=== PATIENT | male | born 2000 | race Caucasian/White ===

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

== ENCOUNTER 2019-08-28 10:13 | Emergency (ER) | payer BC ==
--- NOTE | 2019-08-28 11:24 | ED ---
Lower Extremity - HPI Summary HPI Summary: Patient is a 18-year-old male who presents emergency department for ankle injury that occurred yesterday while running. Symptoms are mild in severity. Pain is exacerbated by walking. Denies numbness, tingling or weakness. - History of Current Complaint Chief Complaint: EDExtremityLower Stated Complaint: POSS BROKEN LEFT ANKLE PER PT Time Seen by Provider: 08/28/19 11:12 Hx Obtained From: Patient Pain Intensity: 7 - Allergies/Home Medications Allergies/Adverse Reactions: Allergies Allergy/AdvReac Type Severity Reaction Status Date / Time No Known Allergies Allergy Verified 08/28/19 10:24 Home Medications: Home Medications Fluticasone NASAL SPRAY 50MCG* [Flonase NASAL SPRAY 50MCG*] 2 spray BOTH NARES DAILY PRN 08/28/19 [History Confirmed 08/28/19] PMH/Surg Hx/FS Hx/Imm Hx Previously Healthy: Yes Endocrine/Hematology History: Denies: Hx Anticoagulant Therapy Respiratory History: Denies: Hx Asthma Infectious Disease History: No Infectious Disease History: Denies: Traveled Outside the [place] in Last 30 Days - Family History Known Family History: Positive: Non-Contributory Negative: Diabetes - Social History Occupation: Student Lives: [facility] [employer] Alcohol Use: Occasionally Substance Use Type: Reports: None Smoking Status (MU): Never Smoked Tobacco Review of Systems Constitutional: Negative Positive: Other - left ankle injury Skin: Negative Neurological: Negative Negative: Weakness, Paresthesia, Numbness All Other Systems Reviewed And Are Negative: Yes Physical Exam Triage Information Reviewed: Yes Vital Signs On Initial Exam: Initial Vitals Temp Pulse Resp BP Pulse Ox 98.3 F 67 16 129/71 99 08/28/19 10:22 08/28/19 10:22 08/28/19 10:22 08/28/19 10:22 08/28/19 10:22 Vital Signs Reviewed: Yes Appearance: Positive: Well-Appearing - Pt. sitting on bed in NAD. Friend present. Skin: Positive: Warm, Dry Head/Face: Positive: Normal Head/Face Inspection Eyes: Positive: Normal, EOMI Neck: Positive: Supple Musculoskeletal: Positive: Other - Pain and mild edema over left lateral malleolus. No breaks in the skin. Pedal pulse and intact. No foot pain on palpation and no pain over the base of the fifth metatarsal. Achilles tendon intact. No proximal tib-fib or knee pain. Neurological: Positive: Normal, CN Intact II-III Psychiatric: Positive: Affect/Mood Appropriate Diagnostics - Vital Signs Vital Signs Temp Pulse Resp BP Pulse Ox 08/28/19 10:22 98.3 F 67 16 129/71 99 - Laboratory Lab Statement: Any lab studies that have been ordered have been reviewed, and results considered in the medical decision making process. Lower Extremity Course/Dx - Course Course Of Treatment: Patient with isolated ankle injury. X-ray shows soft tissue edema without fracture or dislocation, reading per radiology. Air splint placed. Patient requesting patches disease having difficulty ambulatory. Advised ice and elevation. Tylenol or Motrin for pain as directed. To follow-up with health clinic for reevaluation of pain persist. - Diagnoses Differential Diagnosis/HQI/PQRI: Positive: Fracture (Closed), Sprain, Strain Provider Diagnoses: Ankle sprain Discharge ED - Sign-Out/Discharge Documenting (check all that apply): Patient Departure Patient Received Moderate/Deep Sedation with Procedure: No - Discharge Plan Condition: Good Disposition: HOME Patient Education Materials: Ankle Sprain (ED) Referrals: [facility] [Primary Care Provider] - Additional Instructions: Follow up with [facility] if pain persist Wear splint for comfort Ice and elevate intermittently Tylenol or Motrin for pain as directed Return to ER if symptoms change or worsen - Billing Disposition and Condition Condition: GOOD Disposition: Home
[2019-08-28 13:32] VITALS: BP 139/83
== END 2019-08-28 13:31 | disposition home or self-care (01) ==
LOC: ED 10:13
DX: S93.402A Sprain of unspecified ligament of left ankle, initial encounter (principal); X58.XXXA Exposure to other specified factors, initial encounter; Y93.02 Activity, running; Y92.9 Unspecified place or not applicable
CPT/HCPCS: 99282